=== PATIENT | male | born 1995 | race Caucasian/White ===

== ENCOUNTER 2018-04-16 10:43 | Emergency (ER) | payer OTHER ==
[~2018-04-16] VITALS: Ht 167.6 cm; Wt 78.9 kg
[2018-04-16 11:48] VITALS: Ht 167.6 cm; Wt 78.9 kg
[2018-04-16 14:50] VITALS: BP 142/78
== END 2018-04-16 14:51 | disposition home or self-care (01) ==
LOC: ED 10:43
DX: S16.1XXA Strain of muscle, fascia and tendon at neck level, initial encounter (principal); M25.561 Pain in right knee; V49.49XA Driver injured in collision with other motor vehicles in traffic accident, initial encounter; Y93.I9 Activity, other involving external motion; Y92.413 State road as the place of occurrence of the external cause; Y99.8 Other external cause status

== ENCOUNTER 2019-06-15 01:36 | Emergency (ER) | payer MEDICAID ==
[~2019-06-15] VITALS: Ht 170.2 cm; Wt 80.0 kg
[2019-06-15 01:42] VITALS: Ht 170.2 cm; Wt 80.0 kg
[2019-06-15 02:19] LABS: CARBON DIOXIDE 29.8 mmol/L (21-32); CHLORIDE SERUM 104 mmol/L (98-107); CREATININE SERUM 0.8 mg/dL (0.7-1.3); GFR1 > 60 mL/min; GLUCOSE SERUM 114 mg/dL (74-106); POTASSIUM SERUM 3.7 mmol/L (3.5-5.1); SODIUM SERUM 142 mmol/L (136-145)
[2019-06-15 02:22] LABS: BASOPHIL % 0.3 % (0-2); PLATELET COUNT 191 x10^3mcL (130-400); RED CELL DISTRIBUTION WIDTH 13.6 % (11.5-14.5)
[2019-06-15 02:24] LABS: ALKALINE PHOSPHATASE 81 U/L (46-116); ALT/SGPT 42 U/L (16-63); AST/SGOT 31 U/L (15-37); BILIRUBIN TOTAL 0.38 mg/dL (0.20-1.00); LIPASE 92 IU/L (73-393); TOTAL PROTEIN, SERUM 7.1 g/dL (6.4-8.2)
[2019-06-15 02:56] VITALS: BP 118/79
== END 2019-06-15 02:56 | disposition home or self-care (01) ==
LOC: ED 01:36
DX: K29.00 Acute gastritis without bleeding (principal)
CPT/HCPCS: 36415